=== PATIENT | female | born 1995 | race Two or more races ===

== ENCOUNTER 2024-10-10 22:01 | Emergency (ER) | payer MEDICAID, OTHER ==
[~2024-10-10] VITALS: Ht 175.3 cm; Wt 82.0 kg
--- NOTE | 2024-10-10 22:20 | ED.PDOC ---
History of Present Illness HPI Comments 29-year-old female brought in by EMS presents with a chief complaint of back pain. Per EMS, patient was lying supine in the back of her families SUV due to not being able to sit down properly without 10/10 back pain. Patient reports that since giving to her son x 2 years ago she has been dealing with " popped ligaments" in her back and sciatica pain. Patient states that she has been unable to stand or walk today and has been mostly on her knees. Chief Complaint: Back Pain Time Seen by MD: 22:08 Reviewed Notes: Medications, Allergies Allergies: Coded Allergies: Penicillins (Verified Allergy, Unknown, 10/10/24) Sulfa Antibiotics (Verified Allergy, Unknown, 10/10/24) Information Source: Patient, Emergency Med Personnel Mode of Arrival: Ambulatory Severity: Moderate Timing: Hours Duration: Since onset Prehospital treatment: None Past Medical History PAST MEDICAL HISTORY: Denies Surgical History: Denies all surgeries DIRECTOR CAREER SERVICES History: Denies all DIRECTOR CAREER SERVICES Hx Family History Family History: Reviewed,noncontributory to illness Social History Smoker: Non-Smoker Alcohol: Denies ETOH Use Drugs: Denies Drug Use Lives In: Home Constitutional: denies: chills, diaphoresis, fatigue, fever, malaise, sweats, weakness, others EENTM: denies: blurred vision, double vision, ear bleeding, ear discharge, ear drainage, ear pain, ear ringing, eye pain, eye redness, hearing loss, mouth pain, mouth swelling, nasal discharge, nose bleeding, nose congestion, nose pain, photophobia, tearing, throat pain, throat swelling, voice changes, others Respiratory: denies: cough, hemoptysis, orthopnea, SOB at rest, shortness of breath, SOB with excertion, stridor, wheezing, others Cardiovascular: denies: chest pain, dizzy spells, diaphoresis, Dyspnea on exertion, edema, irregular heart beat, left arm pain, lightheadedness, palpitations, PND, syncope, others Gastrointestinal: denies: abdomen distended, abdominal pain, blood streaked bowels, constipated, diarrhea, dysphagia, difficulty swallowing, hematemesis, melena, nausea, poor appetite, poor fluid intake, rectal bleeding, rectal pain, vomiting, others Genitourinary: denies: abnormal vagina bleeding, burning, dyspareunia, dysuria, flank pain, frequency, hematuria, incontinence, pain, , vagina discharge, urgency, others Neurological: denies: dizziness, fainting, headache, left sided numbness, left sided weakness, numbness, paresthesia, pre-existing deficit, right sided numbness, right sided weakness, seizure, speech problems, tingling, tremors, weakness, others Musculoskeletal: reports: back pain; denies: gout, joint pain, joint swelling, muscle pain, muscle stiffness, neck pain, others Integumetry: denies: bruises, change in color, change in hair/nails, dryness, laceration, lesions, lumps, rash, wounds, others Allergic/Immunocompromised: denies: Difficulty Healing, Frequent Infections, Hives, Itching, others Hematologic/Lymphatic: denies: anemia, blood clots, easy bleeding, easy bruising, swollen glands, others Endocrine: denies: excessive hunger, excessive sweating, excessive thirst, excessive urination, flushing, intolerance to cold, intolerance to heat, unexplained weight gain, unexplained weight loss, others Psychiatric: denies: anxiety, bipolar disorder, depression, hopeless, panic disorder, schizophrenia, sleepless, suicidal, others All Other Systems: Reviewed and Negative Physical Exam General Appearance: No Apparent Distress, Normal HEENT: Normal ENT Inspection, Pharynx Normal, TMs Normal Neck: Full Range of Motion, Non-Tender, Normal, Normal Inspection Respiratory: Chest Non-Tender, Lungs Clear, No Accessory Muscle Use, No Respiratory Distress, Normal Breath Sounds Cardiovascular: No Edema, No JVD, No Murmur, No Gallop, Normal Peripheral Pulses, Regular Rate/Rhythm Breast Exam: Deferred Gastrointestinal: No Organomegaly, Non Tender, No Pulsatile Mass, Normal Bowel Sounds, Soft Genitalia: Deferred Pelvic: Deferred Rectal: Deferred Extremities: No calf tenderness, Normal capillary refill, Normal inspection, Normal range of motion, Non-tender, No pedal edema Musculoskeletal : Apperance: Normal Neurologic: Alert, 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 Was a procedure done?: No Differential Dx Considerations may include: Herniated disc, sciatica, kidney stone, urinary tract infection, pyelonephritis X-Ray, Labs, Meds, VS Vital Signs Date Time Temp Pulse Resp B/P (MAP) Pulse Ox O2 Delivery O2 Flow Rate FiO2 10/10/24 22:13 98.1 87 18 111/83 (92) 97 98.1 X-Ray, Labs, Meds, VS Comment Imaging: X-rays and CT scans were reviewed and interpreted by this provider, imaging shows no fractures , 4 mm kidney stone noted. Pending radiology review. Laboratory: Labs reviewed and interpreted by this provider. No significant abnormalities noted. Patient has prior medical visits reviewed. Med reconciliation performed Vital signs reviewed Time of 1ST Reevaluation: 22:38 Reevaluation 1ST: Unchanged Patient Education/Counseling: Diagnosis, Treatment, Need For Follow Up (Follow up with PCP in the next 2-4 days. Return to emergency department if symptoms worsen over the next 24 hours.) Family Education/Counseling: No Family Present Departure 1 Departure Time of Disposition: 00:38 Impression: Primary Impression: Kidney calculi Disposition: HOME / SELF CARE / HOMELESS Condition: Fair e-Prescriptions Tamsulosin Hcl (Flomax) 0.4 Mg Cap 1 CAP PO DAILY PRN, #10 CAP 11 Refills Prov: ZOEY PEÑALOZA 10/11/24 Hydrocodone-Acetaminophen (Hydrocodone Bitartrate/AC 5-325 mg) 1 Tab Tab 1 TAB PO TID PRN, #24 TAB Prov: ZOEY PEÑALOZA 10/11/24 Discharged With: Self Critical Care Note Critical Care Time?: No Stability Stability form required: No Heart Score Heart Score: Heart Score Response (Comments) Value History N/A 0 EKG N/A 0 Age N/A 0 Risk Factors N/A 0 Troponin N/A 0 Total 0 I personally scribed for ZOEY PEÑALOZA ([email or web address]) on 10/10/24 at 22:20. Electronically submitted by Reece Oconnor ([email or web address]). ZOEY PEÑALOZA Oct 10, 2024 22:20
--- NOTE | 2024-10-10 23:32 | DVH ---
EXAM: CT LS SPINE WO CONTRAST HISTORY: back pain COMPARISON: None CTDIvol 37.17 mGy, DLP 132.65 mGy*cm. TECHNIQUE: Multiple axial CT images of the spine were obtained using bone algorithm. Axial and coron al reformatting was done. Bone and soft tissue windows were reviewed. FINDINGS: No CT evidence of definite acute fracture, spinal dislocation, or significant appearing acute subluxa tion is seen. The visualized paraspinal soft tissues are grossly unremarkable. Incidentally noted 0.4 cm nonobstructing left inferior pole pelvocaliceal calculus. IMPRESSION: 1. No definite CT evidence of acute fracture or dislocation of the bony lumbosacral spine. 2. Nonobstructive left nephrolithiasis.
[2024-10-11] MEDS: KETOROLAC TROMETH 30 MG/ML 1ML VIAL IM ONE (00:36)
[2024-10-11] MEDS ORDERED: HYDR-4902 PO (00:36)
[2024-10-11] MEDS ORDERED: TAMS-35 PO (00:36)
[2024-10-11] MEDS: methylPREDNISolone SOD SUCC 125 MG/2 ML VL IM ONE (00:36)
[2024-10-11 01:40] VITALS: TEMP 97.7; O2SAT 98
[2024-10-11] MEDS: ONDANSETRON HCL 4 MG/2 ML VIAL IV ONE (01:43)
[2024-10-11 01:46] VITALS: BP 137/72; PULSE 82; RESP 16
[2024-10-11] MEDS: MORPHINE SULFATE 4 MG/ML SYR/VIAL IV ONE (01:46)
== END 2024-10-11 02:02 | disposition home or self-care (01) ==
LOC: EDBD 22:01 → ER 22:09 → EDBD 22:09 → ER 10-11 02:02
DX: N20.0 Calculus of kidney (principal); Z88.0 Allergy status to penicillin; Z88.2 Allergy status to sulfonamides
CPT/HCPCS: 72131; 96372; 96374; 96375; 99285; J1885; J2270; J2405; J2919